=== PATIENT | male | born 1965 | race African-American/Black ===

== ENCOUNTER 2023-09-07 10:48 | Day surgery (SDC) | payer MEDICAID ==
[~2023-09-07] VITALS: Ht 190.5 cm; Wt 95.3 kg
[2023-09-07 11:48] VITALS: O2SAT 100
[2023-09-07] MEDS ORDERED: fentaNYL CITRATE/PF 100 MCG/2 ML AMP ONE (12:34)
[2023-09-07] MEDS ORDERED: MIDAZOLAM HCL 5 MG/5 ML VIAL ONE (12:35)
[2023-09-07 13:12] VITALS: BP_SYST 115; PULSE 94; RESP 12
== END 2023-09-09 13:40 | disposition home or self-care (01) ==
LOC: SDS 10:48
PROVIDERS: ATTEND Surgery
DX: Z12.11 Encounter for screening for malignant neoplasm of colon (principal); J44.9 Chronic obstructive pulmonary disease, unspecified; K58.9 Irritable bowel syndrome, unspecified; K57.33 Diverticulitis of large intestine without perforation or abscess with bleeding; Z93.2 Ileostomy status; F17.210 Nicotine dependence, cigarettes, uncomplicated; Z79.899 Other long term (current) drug therapy
CPT/HCPCS: 45378; 99152; G0378; J2250; J3010